=== PATIENT | male | born 1965 | race Caucasian/White ===

== ENCOUNTER 2017-09-14 01:11 | Inpatient (IN) | payer OTHER ==
[~2017-09-14] VITALS: Ht 182.9 cm; Wt 78.7 kg
[2017-09-14 01:15] VITALS: Ht 182.9 cm; Wt 78.7 kg
[2017-09-14 02:01] LABS: BASOPHIL % 2.9 % (0-2); PLATELET COUNT 204 x10^3mcL (130-400); RED CELL DISTRIBUTION WIDTH 12.9 % (11.5-14.5)
[2017-09-14 02:12] LABS: CALCIUM 9.2 mg/dL (8.5-10.1); CARBON DIOXIDE 25.8 mmol/L (21-32); CHLORIDE SERUM 108 mmol/L (98-107); CREATININE SERUM 1.1 mg/dL (0.7-1.3); GFR1 > 60 mL/min; GLUCOSE SERUM 100 mg/dL (74-106); POTASSIUM SERUM 3.6 mmol/L (3.5-5.1); SODIUM SERUM 137 mmol/L (136-145)
[2017-09-14 02:17] LABS: ALBUMIN 3.8 g/dL (3.4-5.0); ALKALINE PHOSPHATASE 127 U/L (46-116); ALT/SGPT 30 U/L (16-63); AST/SGOT 30 U/L (15-37); BILIRUBIN TOTAL 0.39 mg/dL (0.20-1.00); TOTAL PROTEIN, SERUM 7.5 g/dL (6.4-8.2)
[2017-09-14 02:51] LABS: CK-MB 3.7 ng/mL (0-3.6)
[2017-09-14 03:15] LABS: MAGNESIUM 1.9 mg/dL (1.8-2.4)
[2017-09-14 03:21] LABS: T3 TOTAL 1.19 ng/mL
[2017-09-14 03:26] LABS: FREE T4 0.99 ng/dL (0.76-1.46); FREE THYROXINE INDEX 2.6 ug/dL (1.4-4.5); T4(THYROXINE) 7.7 ug/dL (4.7-13.3)
[2017-09-14 10:39] VITALS: BP 150/109
[2017-09-14 11:00] VITALS: BP 132/95
[2017-09-14 13:53] VITALS: BP 135/84
[2017-09-14 15:54] LABS: UA SPECIFIC GRAVITY <=1.005 (1.005-1.035); microscopic required? YES; urine erythrocyte NEGATIVE (NEGATIVE)
[2017-09-14 16:05] LABS: AMPHETAMINE QUAL UR NONE DETECTED (See below)
[2017-09-14 17:04] VITALS: BP 128/89
[2017-09-14 21:27] VITALS: BP 143/101
[2017-09-15 06:11] VITALS: BP 162/99
[2017-09-15 06:47] LABS: BASOPHIL % 0.6 % (0-2); PLATELET COUNT 198 x10^3mcL (130-400); RED CELL DISTRIBUTION WIDTH 13.9 % (11.5-14.5)
[2017-09-15 07:04] LABS: CALCIUM 9.7 mg/dL (8.5-10.1); CARBON DIOXIDE 24.7 mmol/L (21-32); CREATININE SERUM 1.5 mg/dL (0.7-1.3); MAGNESIUM 2.1 mg/dL (1.8-2.4); PHOSPHOROUS 4.5 mg/dL (2.5-4.9); POTASSIUM SERUM 3.6 mmol/L (3.5-5.1)
[2017-09-15] MEDS ORDERED: ZES20 PO (11:47)
[2017-09-15] MEDS ORDERED: METOPROLOL TART25 M1 PO (11:47)
[2017-09-15] MEDS ORDERED: LIPI10 PO (11:47)
[2017-09-15] MEDS ORDERED: ECO81 PO (11:48)
[2017-09-15] MEDS ORDERED: LASIX20 MG PO (11:48)
[2017-09-15] MEDS ORDERED: IBUPROFEN400 MG PO (12:24)
[2017-09-15 13:12] VITALS: BP 153/82
== END 2017-09-15 13:39 | disposition home or self-care (01) | DRG 194 ==
LOC: ED 01:11 → DU 03:02
PROVIDERS: Emergency Medicine; Family Medicine
DX: I11.0 Hypertensive heart disease with heart failure (principal); I21.4 Non-ST elevation (NSTEMI) myocardial infarction; J96.01 Acute respiratory failure with hypoxia; I50.43 Acute on chronic combined systolic (congestive) and diastolic (congestive) heart failure; I42.9 Cardiomyopathy, unspecified; R16.0 Hepatomegaly, not elsewhere classified; F17.210 Nicotine dependence, cigarettes, uncomplicated; I16.0 Hypertensive urgency; E78.5 Hyperlipidemia, unspecified; I25.2 Old myocardial infarction; I25.10 Atherosclerotic heart disease of native coronary artery without angina pectoris; K80.20 Calculus of gallbladder without cholecystitis without obstruction; I44.4 Left anterior fascicular block
CPT/HCPCS: 36600; 83880; 84439; J0360; J1644; J1885; J1940; J7030; J7620; Q0092

== ENCOUNTER 2018-01-07 04:13 | Inpatient (IN) | payer OTHER ==
[~2018-01-07] VITALS: Ht 182.9 cm; Wt 82.6 kg
[~2018-01-07 04:13] MED LIST: ECO81 PO; IBUPROFEN400 MG PO; LASIX20 MG PO; LIPI10 PO; METOPROLOL TART25 M1 PO; ZES20 PO
[2018-01-07 04:17] VITALS: Ht 182.9 cm; Wt 82.6 kg
[2018-01-07 05:01] LABS: CALCIUM 8.9 mg/dL (8.5-10.1); CARBON DIOXIDE 24.7 mmol/L (21-32); CREATININE SERUM 1.4 mg/dL (0.7-1.3); POTASSIUM SERUM 3.6 mmol/L (3.5-5.1)
[2018-01-07 05:06] LABS: ALBUMIN 3.6 g/dL (3.4-5.0); BILIRUBIN TOTAL 0.39 mg/dL (0.20-1.00); TOTAL PROTEIN, SERUM 6.8 g/dL (6.4-8.2)
[2018-01-07 05:32] LABS: BASOPHIL % 1.1 % (0-2); PLATELET COUNT 206 x10^3mcL (130-400); RED CELL DISTRIBUTION WIDTH 13.6 % (11.5-14.5)
[2018-01-07 06:55] VITALS: BP 156/123
[2018-01-07 06:55] LABS: MAGNESIUM 1.9 mg/dL (1.8-2.4); PHOSPHOROUS 4.8 mg/dL (2.5-4.9)
[2018-01-07 07:05] LABS: FREE T4 0.96 ng/dL (0.76-1.46); FREE THYROXINE INDEX 2.5 ug/dL (1.4-4.5); T4(THYROXINE) 7.1 ug/dL (4.7-13.3)
[2018-01-07 07:27] LABS: T3 TOTAL 1.14 ng/mL
[2018-01-07 07:48] VITALS: BP 165/104
[2018-01-07 11:46] VITALS: BP 156/123
[2018-01-07 12:01] VITALS: BP 150/109
[2018-01-07 18:39] VITALS: BP 179/119
[2018-01-07 21:13] VITALS: BP 177/126
[2018-01-07 22:15] LABS: microscopic required? YES; urine erythrocyte TRACE (NEGATIVE)
[2018-01-07 22:24] LABS: AMPHETAMINE QUAL UR NONE DETECTED (See below)
[2018-01-08 05:59] VITALS: BP 169/122
[2018-01-08 06:25] LABS: BASOPHIL % 1.1 % (0-2); PLATELET COUNT 182 x10^3mcL (130-400); RED CELL DISTRIBUTION WIDTH 13.4 % (11.5-14.5)
[2018-01-08 06:58] LABS: CALCIUM 9.1 mg/dL (8.5-10.1); CARBON DIOXIDE 24.9 mmol/L (21-32); CREATININE SERUM 1.4 mg/dL (0.7-1.3); POTASSIUM SERUM 3.1 mmol/L (3.5-5.1)
[2018-01-08 09:25] VITALS: BP 170/114
[2018-01-08 12:48] VITALS: BP 175/124
[2018-01-08] MEDS ORDERED: PLAVIX75 M1 PO (14:53)
[2018-01-08] MEDS ORDERED: TOPROL XL25 MG PO (14:54)
[2018-01-08] MEDS ORDERED: LIPITOR40 MG PO (14:54)
[2018-01-08 15:12] VITALS: BP 175/124
== END 2018-01-08 15:40 | disposition home or self-care (01) | DRG 190 ==
LOC: ED 04:13 → DU 05:39
PROVIDERS: Emergency Medicine; Family Medicine; General Practice
DX: I21.4 Non-ST elevation (NSTEMI) myocardial infarction (principal); N17.0 Acute kidney failure with tubular necrosis; I50.23 Acute on chronic systolic (congestive) heart failure; I11.0 Hypertensive heart disease with heart failure; I25.5 Ischemic cardiomyopathy; R73.9 Hyperglycemia, unspecified; E78.5 Hyperlipidemia, unspecified; Z53.29 Procedure and treatment not carried out because of patient's decision for other reasons; Z68.23 Body mass index [BMI] 23.0-23.9, adult; I16.1 Hypertensive emergency; F17.200 Nicotine dependence, unspecified, uncomplicated; Z79.82 Long term (current) use of aspirin; Z79.899 Other long term (current) drug therapy; Z80.9 Family history of malignant neoplasm, unspecified; Z82.49 Family history of ischemic heart disease and other diseases of the circulatory system; Z91.14 Patient's other noncompliance with medication regimen
CPT/HCPCS: 83880; 84439; 94150; J1885; J1940; J2270; J7620; Q0092

== ENCOUNTER 2018-06-04 10:48 | Emergency (ER) | payer OTHER ==
[~2018-06-04] VITALS: Ht 182.9 cm; Wt 75.0 kg
[~2018-06-04 10:48] MED LIST changes: +LIPITOR40 MG PO; +PLAVIX75 M1 PO; +TOPROL XL25 MG PO
[2018-06-04 10:49] VITALS: Ht 182.9 cm; Wt 75.0 kg
[2018-06-04 11:18] VITALS: BP 124/75
== END 2018-06-04 11:18 | disposition home or self-care (01) ==
LOC: ED 10:48
DX: R61 Generalized hyperhidrosis (principal); I11.0 Hypertensive heart disease with heart failure; I50.9 Heart failure, unspecified; F17.200 Nicotine dependence, unspecified, uncomplicated
CPT/HCPCS: 99406